=== PATIENT | male | born 1950 ===

== ENCOUNTER 2017-06-10 15:32 | Outpatient (CLI) | payer OTHER | END 2017-06-10 15:42 | disposition home or self-care (01) | LOC: LAB 15:32 | DX: N30.00 Acute cystitis without hematuria (principal) ==

== ENCOUNTER 2017-10-11 10:42 | Outpatient (CLI) | payer OTHER | END 2017-10-11 10:50 | disposition home or self-care (01) | LOC: LAB 10:42 | DX: N30.00 Acute cystitis without hematuria (principal) ==

== ENCOUNTER 2018-03-10 15:25 | Outpatient (CLI) | payer OTHER | END 2018-03-10 17:57 | disposition home or self-care (01) | LOC: LAB 15:25 | DX: N30.00 Acute cystitis without hematuria (principal) ==

== ENCOUNTER 2018-04-26 14:56 | Outpatient (CLI) | payer OTHER | END 2018-04-26 15:07 | disposition home or self-care (01) | LOC: LAB 14:56 | DX: N30.00 Acute cystitis without hematuria (principal) ==

== ENCOUNTER → 2018-11-14 09:44 | Outpatient (CLI) | payer OTHER | END | disposition home or self-care (01) | LOC: LAB 09:44 | DX: N30.00 Acute cystitis without hematuria (principal); K57.21 Diverticulitis of large intestine with perforation and abscess with bleeding ==

== ENCOUNTER 2023-03-07 10:29 | Outpatient (CLI) | payer OTHER | END 2023-03-07 10:39 | disposition home or self-care (01) | LOC: SONOGRAMA 10:29 | DX: I71.41 Pararenal abdominal aortic aneurysm, without rupture (principal) ==

== ENCOUNTER 2023-03-14 10:50 | Outpatient (CLI) | payer OTHER | END 2023-03-14 10:51 | disposition home or self-care (01) | LOC: NUCLEAR 10:50 | DX: I10 Essential (primary) hypertension (principal); E66.09 Other obesity due to excess calories ==